=== PATIENT | male | born 1975 | race Caucasian/White ===

== ENCOUNTER 2023-05-03 01:06 | Day surgery (SDC) | payer OTHER, SELFPAY ==
[2023-04-30 08:51] VITALS: BMI 32.2
--- NOTE | 2023-04-30 09:02 | PC.NURSE ---
Report to the Outpatient Waiting Room, entrance under the green pavilion located off [facility], at time 06:00AM on date 05-03-23. Planned Procedure Time: 07:30AM. Time changes happen often and if your time is changed the preop area will call you the afternoon before. - You and your visitor will be asked to self-screen and do not enter if you have any COVID symptoms. - A mask is optional within the hospital at this time. Patients may have clear liquids (water, carbonated beverages, clear teas, apple juice) until 3 hours prior to surgery (04:30AM) with a maximum of 20 ounces. - No food from midnight until time of surgery Take the following medications with a SIP of water the morning of surgery: ADHD NEEDED DO NOT STOP ANY OF YOUR OTHER PRESCRIPTION MEDICATIONS PRIOR TO SURGERY ?EXCEPT THE FOLLOWING Medications to discontinue per physician SUPPLEMENTS Date to take last dose STOP NOW Please no make-up, nail welsh, hairspray, perfume, deodorant, or body powder the day of surgery. No jewelry (including any body piercings) or valuables the day of surgery, leave them at home. Please take a shower or bath the night before, or the morning of, surgery with an antibacterial soap. Wear comfortable, loose fitting clothing. - Jewelry must be removed prior to entering the operating room. Rings and piercings that are not removed may be cut off. - The hospital will not accept responsibility for valuables. - Please leave all valuables, including medications, at home the day of surgery. If you are going home after surgery, a licensed farm truck driver must drive you home. - NO public transportation without another adult if you receive anesthesia. - We recommend that an adult stay with you for 24 hours following discharge. - We also recommend that you do not drive, make important decision, drink alcoholic beverages, or take any drugs that were not prescribed by your health care provider for at least 24 hours after your discharge time. Follow any additional instructions given to you from your surgeon. If you or anyone in your household have experienced Covid symptoms in the past week, please notify your surgeon or the nurse liaison at the phone number below for possible testing. Telephone instructions given to PATIENT and asked if any additional questions and then verbalized understanding. Patient advised to call surgeon office or pre surgery nurse liaison [phone] if any additional questions.
[2023-05-03] VITALS (8 sets, daily range): BP systolic 125–149; BP diastolic 76–99; PULSE 93–102; RESP 10–19; TEMP 36.2–36.3; O2SAT 92–98; BMI 32.5
[2023-05-03 06:40] LABS: Urine Cotinine NEGATIVE
[2023-05-03] MEDS: LACTATED RINGERS 1,000 ML 30 ML IV CONT ×2 (06:45→09:18)
--- NOTE | 2023-05-03 06:55 | P.OP_ITS ---
Procedure Note - Detailed Date of Procedure 05/03/23 Pre-op Diagnosis Gynecomastia Post-op Diagnosis Same Procedure Performed Treatment gynecomastia Surgeon Moe English MD Anesthesia General Findings Lipoaspirate: 300 cc Description of Procedure He is here today for the above procedure. Previously and again today the risks, benefits, alternatives were discussed in extensive detail. I wanted him to be very realistic about the risks involved as well as expectations. We discussed aftercare and what to monitor for. Discussed realistic expectations of outcome. He understands if there is residual loose skin he would proceed with skin excision at a second stage. Made sure I answered all of questions to satisfaction today and consent was obtained. He was marked in the preoperative holding area with his verification. The patient was taken to the operating room placed supine on the operating table. Anesthesia was provided by anesthesiology. Prepped and draped in a standard sterile fashion. A surgical time-out was taken. Stab incisions were made and I tumesced with a tumescent solution. A 15 blade was used to make an inferior areolar incision and dissection continued until the gland was identified. This was excised. Irrigated copiousl y with saline solution and verified a strict hemostasis. This was tailor tacked into place. I then proceeded with suction lipectomy based on S[employer] technique using a 5mm basket cannula. This was in multiple planes and passes and based on pre- operative planning, intraoperative observation, and rolling pinch test which was in full agreement. He was placed in a sitting position to verify final contour. Incision was closed with 2-0 Vicryl, 3-0 Monocryl, and running subcuticular 4-0 Monocryl. Port sites closed with 4-0 Nylon. Dressing was placed. Patient was awoke and taken to PACU without difficulty. All instrument and sponge counts were correct at the end of the case. Estimated Blood Loss 25 Drains No Packing No Pathology None sent Complications No immediate complications Condition Stable Disposition PACU
--- NOTE | 2023-05-03 06:55 | WPDHPUPDATE1 ---
History and Physical Update Update Date/Time: 05/03/23 06:55 History and Physical has been reviewed, including an updated exam of the patient. There are NO changes in the patient's condition. Risks, benefits, and alternatives have been discussed and questions answered. Patient agrees to proceed with procedure.
--- NOTE | 2023-05-03 07:12 | P.PNAN_ITS ---
Anes - Initial Pre Proc Eval Procedure: Operation Date: 05/03/23 07:30 Proposed Procedures p Excision and Liposuction Bilateral Gynecomastia - Moe English MD Date/Time: 05/03/23 07:12 Surgeon: Moe English MD Pre Op Diagnosis: Gynecomastia Patient Data Age: 47 Gender: M Height: 1.78 m Weight: 103.1 kg Last Vital Signs Temp 36.3 C L 05/03/23 06:00 Pulse 102 H 05/03/23 06:00 Resp 18 05/03/23 06:00 BP 149/85 H 05/03/23 06:00 Pulse Ox 93 05/03/23 06:00 O2 Del Method Room Air 05/03/23 06:00 Allergies Allergy/AdvReac Type Severity Reaction Status Date / Time ibuprofen AdvReac Congested Verified 05/03/23 07:07 Home Medications Medication Instructions Recorded Confirmed Type amino acids (Amino Acid capsule) 1 cap PO DAILY 04/30/23 04/30/23 History dextroamphetamine-amphetamine ER 20 mg PO DAILY 04/30/23 04/30/23 History 10 mg 24hr capsule,extend release testosterone cypionate 200 mg/mL 200 mg IM 04/30/23 History intramuscular oil Laboratory Tests 05/03/23 06:08 Cotinine Negative Patient hx anesthesia problems: none Family hx anesthesia problems: none Results Review: All pre-operative results and documents have been reviewed as part of the pre- operative evaluation. [facility] Social History Social History Smoking status: Never smoker Second hand tobacco smoke exposure: No Alcohol intake: former Substance use: never Substance use type: does not use Living arrangements: with family Spiritual care concerns: No Anes - Eval Final PreProcedure Day of Procedure 05/03/23 07:12 Patient weight: obese Heart: regular rate and rhythm Lungs: clear to auscultation Airway: Mallampati scale class II Neurological: alert and oriented Last oral intake: >/= 8 hours ASA classification: II Emergent: no Anesthetic plan: proceed Anesthesia type and monitoring: general LMA and standard monitoring Results Review: All pre-operative results and documents have been reviewed as part of the pre- operative evaluation. Informed Consent: The patient's anesthetic plan and its attendant risks and benefits were discussed with the patient/family/POA. Questions were solicited and answers provided to the satisfaction of the patient/family/POA.
[2023-05-03] MEDS: LACTATED RINGERS IRRIG 1,000 ML, LIDOCAINE HCL 1% LOCAL INJ 50 ML, EPINEPHrine HCL INJ ... INFILTRATE (07:28)
[2023-05-03] MEDS: ceFAZolin 2 GM/D5W 50 ML 2 GM/50 ML BAG IVPB (07:28)
[2023-05-03] MEDS: TRANEXAMIC ACID 1,000MG/ISO100 1,000 MG/100 ML BAG 200 MG IVPB (08:05)
[2023-05-03] MEDS: fentaNYL CITRATE INJ (*CRX) 100 MCG/2 ML VIAL 25 MCG IV PUSH (09:42)
[2023-05-03] MEDS: oxyCODONE HCL (*CRX) 5 MG TAB IR PO (10:31)
== END 2023-05-03 10:56 | disposition home or self-care (01) ==
PROVIDERS: PCP Family Medicine; Visit Provider Surgery Plastic and Reconstructive Surgery
PROC: (CPT 19300; principal; 2023-05-03 07:30)
DX: N62 Hypertrophy of breast (principal); E66.9 Obesity, unspecified; Z68.32 Body mass index [BMI] 32.0-32.9, adult
CPT/HCPCS: 19300; 15877; 80307; A9270; J0171; J0690; J1100; J2250; J2405; J2704; J3010; J7120